=== PATIENT | female | born 1960 ===

== ENCOUNTER 2019-06-01 09:26 | Day surgery (SDC) | payer OTHER ==
[~2019-06-01 09:26] MED LIST: SYNTHROID50 MCG PO; ZOCOR5 MG PO
== END 2019-06-01 15:15 | disposition home or self-care (01) ==
LOC: AMB-ENDOS 09:26 → ADM 13:00 → AMB-ENDOS 15:15
DX: D12.8 Benign neoplasm of rectum (principal)